=== PATIENT | male | born 1995 | race Caucasian/White ===

== ENCOUNTER 2017-04-07 12:32 | Emergency (ER) | payer BC ==
[2017-04-07 15:34] LABS: BASO # 0.1 10^3/uL (0.0-0.2); BASO % 0.7 % (0.0-1.0); EOS # 0.2 10^3/uL (0.0-0.50); EOS % 1.6 % (0.0-3.0); HEMATOCRIT 50.8 % (42.0-52.0); HEMOGLOBIN 18.1 g/dl (14.0-18.0); IMMATURE GRANULOCYTE % 0.4 % (0-0); LYMPH # 2.4 10^3/uL (1.5-6.5); LYMPH % 21.9 % (24.0-44.0); MEAN CORPUSCULAR HEMOGLOBIN 31.7 pg (27.0-33.0); MEAN CORPUSCULAR HGB CONC 35.6 g/dl (32.0-36.5); MONO # 0.7 10^3/uL (0.0-0.8); MONO % 6.1 % (0.0-5.0); NEUTROPHILS # 7.5 10^3/uL (1.8-7.7); NEUTROPHILS % 69.3 % (36.0-66.0); PLATELET COUNT, AUTOMATED 321 10^3/uL (150-450); RED BLOOD COUNT 5.71 10^6/uL (4.30-6.10); RED CELL DISTRIBUTION WIDTH 11.4 % (11.5-14.5); WHITE BLOOD COUNT 10.9 10^3/uL (4.0-10.0)
[2017-04-07 15:54] LABS: ANION GAP 6 MEQ/L (8-16); BLOOD UREA NITROGEN 12 MG/DL (7-18); CARBON DIOXIDE LEVEL 27 MEQ/L (21-32); CHLORIDE LEVEL 105 MEQ/L (98-107); CPK CREATINE PHOSPHOKINASE 215 U/L (39-308); CREATININE FOR GFR 0.87 MG/DL (0.70-1.30); GLOMERULAR FILTRATION RATE > 60.0 (>60); GLUCOSE, FASTING 90 MG/DL (70-100); SODIUM LEVEL 138 MEQ/L (136-145); TROPONIN I < 0.02 NG/ML (< 0.10)
[2017-04-07 15:59] LABS: MB/CK RELATIVE INDEX 0.46 (< OR =4)
== END 2017-04-07 16:31 | disposition home or self-care (01) ==
LOC: M ED 12:32
DX: R07.89 Other chest pain (principal); R06.02 Shortness of breath; R00.2 Palpitations; F33.9 Major depressive disorder, recurrent, unspecified; Z79.899 Other long term (current) drug therapy; F17.210 Nicotine dependence, cigarettes, uncomplicated
CPT/HCPCS: 71046

== ENCOUNTER → 2019-12-26 | Outpatient (CLI) | payer OTHER ==
[~2019-12-26] MED LIST: PARO20TA3
--- NOTE | 2019-12-31 10:55 | REP ---
LEFT ANKLE SERIES CLINICAL: Injury. TECHNIQUE: AP, lateral, and bilateral oblique views of the left ankle. FINDINGS: Osseous structures, joint spaces, and surrounding soft tissues are normal. No evidence for acute fracture or dislocation. IMPRESSION: Age appropriate left ankle radiographs. No acute fracture or dislocation. MTDD
--- NOTE | 2019-12-31 10:56 | REP ---
LEFT FOOT SERIES CLINICAL: Trauma, injury. TECHNIQUE: AP, lateral, and bilateral oblique views of the left foot. FINDINGS: Osseous structures, joint spaces, and surrounding soft tissues are normal. No acute fracture or dislocation. No subcutaneous emphysema or foreign body. IMPRESSION: Normal left foot radiographs. No acute fracture or dislocation. MTDD
== END ==
LOC: M WUC 12:38
PROVIDERS: ATTEND Physician Assistant
DX: S93.402A Sprain of unspecified ligament of left ankle, initial encounter (principal); S93.602A Unspecified sprain of left foot, initial encounter; X58.XXXA Exposure to other specified factors, initial encounter; Y92.89 Other specified places as the place of occurrence of the external cause

== ENCOUNTER → 2020-05-21 | Outpatient (REF) | payer OTHER | LOC: M WUC 10:37 | PROVIDERS: ATTEND Physician Assistant | DX: J02.9 Acute pharyngitis, unspecified (principal) ==

== ENCOUNTER 2020-06-23 21:21 | Emergency (ER) | payer OTHER ==
[~2020-06-23] VITALS: Ht 170.2 cm; Wt 112.3 kg
[2020-06-23 23:10] LABS: BASO # 0.1 10^3/uL (0.0-0.2); BASO % 0.6 % (0.0-1.0); EOS # 0.2 10^3/uL (0.0-0.5); EOS % 1.3 % (0.0-3.0); HEMATOCRIT 45.1 % (42.0-52.0); HEMOGLOBIN 15.4 g/dl (13.5-17.5); LYMPH # 3.2 10^3/uL (1.5-5.0); LYMPH % 22.7 % (24.0-44.0); MEAN CORPUSCULAR HEMOGLOBIN 31.2 pg (27.0-33.0); MEAN CORPUSCULAR HGB CONC 34.1 g/dl (32.0-36.5); MEAN CORPUSCULAR VOLUME 91.3 fl (80.0-96.0); MONO % 7.1 % (2.0-8.0); NEUTROPHILS # 9.4 10^3/uL (1.5-8.5); NEUTROPHILS % 67.5 % (36.0-66.0); PLATELET COUNT, AUTOMATED 333 10^3/uL (150-450); RED BLOOD COUNT 4.94 10^6/uL (4.30-6.10)
[2020-06-23 23:38] LABS: BLOOD UREA NITROGEN 14 MG/DL (7-18); CALCIUM LEVEL 8.5 MG/DL (8.5-10.1); CARBON DIOXIDE LEVEL 30 MEQ/L (21-32); CHLORIDE LEVEL 107 MEQ/L (98-107); CREATININE FOR GFR 0.98 MG/DL (0.70-1.30); GLOMERULAR FILTRATION RATE > 60.0 (>60); GLUCOSE, FASTING 106 MG/DL (70-100); SODIUM LEVEL 141 MEQ/L (136-145)
[2020-06-23] MEDS ORDERED: ISOVUE-370 76% 100ML VIAL As Ordered ONE (23:52)
--- NOTE | 2020-06-24 00:37 | REPVR ---
PROCEDURE INFORMATION: Exam: CT Neck With Contrast Exam date and time: 06/23/2020 11:40 PM Age: 25 years old Clinical indication: Enlarged lymph nodes; Localized; Additional info: Left lymphadenopthy TECHNIQUE: Imaging protocol: Computed tomography images of the neck with contrast. Radiation optimization: All CT scans at this facility use at least one of these dose optimization techniques: automated exposure control; mA and/or kV adjustment per patient size (includes targeted exams where dose is matched to clinical indication); or iterative reconstruction. Contrast material: ISO; Contrast volume: 75 ml; Contrast route: INTRAVENOUS (IV); COMPARISON: No relevant prior studies available. FINDINGS: Limitations: Patient motion. Paranasal sinuses: Mild paranasal sinus disease. Nasopharynx: Unremarkable. Oropharynx: Unremarkable. No significant tonsillar enlargement. Hypopharynx: Unremarkable. Larynx: Unremarkable. Normal epiglottis. Retropharyngeal space: Unremarkable. Submandibular/Parotid glands: Normal. Glands are normal in size. Thyroid: Normal. No enlarged or calcified nodules. Lymph nodes: There is bilateral cervical lymphadenopathy greatest at the IIA levels measuring up to 2.7 cm on the left. There are adjacent inflammatory changes bilaterally. No evidence of annabella necrosis. Trachea: Visualized trachea is unremarkable. Lungs: Unremarkable as visualized. Bones/joints: Unremarkable. No acute fracture. Soft tissues: Unremarkable. No significant soft tissue swelling. IMPRESSION: 1. Bilateral cervical lymphadenopathy measuring up to 2.7 cm on the left with adjacent inflammatory changes bilaterally compatible with lymphadenitis. 2. No drainable fluid collection or evidence of annabella necrosis. Electronically signed by: Arturo Killian On 06/24/2020 00:37:21 AM
--- NOTE | 2020-06-24 01:23 | REPVR ---
PROCEDURE INFORMATION: Exam: XR Chest Exam date and time: 06/24/2020 1:01 AM Age: 25 years old Clinical indication: Other: Lymphadenopathy TECHNIQUE: Imaging protocol: XR of the chest. Views: 2 views. COMPARISON: [facility] Chest, 2 view PA, Lat 04/07/2017 3:27 PM FINDINGS: Lungs: Unremarkable. No consolidation. Pleural spaces: Unremarkable. No pleural effusion. No pneumothorax. Heart/Mediastinum: Unremarkable. No cardiomegaly. Bones/joints: Unremarkable. IMPRESSION: No acute findings. Electronically signed by: Arturo Killian On 06/24/2020 01:23:49 AM
[2020-06-24] MEDS ORDERED: AUGMENTIN 875 MG TAB PO ONE (02:00)
[2020-06-24] MEDS ORDERED: AUGM875T28 PO (02:00)
[2020-06-24 02:10] VITALS: BP 129/74
--- NOTE | 2020-06-25 09:27 | ED PDOC ---
Post-Departure Follow-Up dr griggs faxed formal report of ct neck for fu Roldan Guzman MD Jun 25, 2020 09:27
== END 2020-06-24 02:15 | disposition home or self-care (01) ==
LOC: M ED 21:21
DX: L04.0 Acute lymphadenitis of face, head and neck (principal)
CPT/HCPCS: 70491; 71046; 80048; 85025; 99284; Q9967

== ENCOUNTER 2024-07-13 15:37 | Emergency (ER) | payer OTHER ==
[~2024-07-13] VITALS: Ht 170.2 cm; Wt 112.8 kg
[~2024-07-13 15:37] MED LIST changes: +AUGM875T28 PO
[2024-07-13 17:28] LABS: KETONE, URINE AUTO RFX TRACE mg/dL (NEGATIVE); LEUKOCYTE ESTERASE UR AUTO RFX NEGATIVE (NEGATIVE); MUCUS, URINE RFX SMALL (NEGATIVE); NITRITE, URINE AUTO RFX NEGATIVE (NEGATIVE); RBC, URINE AUTO RFX 0 /HPF (0-3); SQUAM EPITHELIAL CELL UR AURFX 0 /HPF (0-6); WBC, URINE AUTO RFX 0 /HPF (0-3)
[2024-07-13] MEDS ORDERED: IBUP-1114 PO (19:26)
[2024-07-13 19:35] VITALS: BP 141/97; TEMP 98; O2SAT 98
[2024-07-13] MEDS: IBUPROFEN 400MG TAB PO ONE (19:39)
[2024-07-13 19:42] LABS: Trichomonas vaginalis (AMP) NOT DETECTED (NEGATIVE)
[2024-07-13 20:05] LABS: GC DNA AMPLIFICATION NEGATIVE (NEGATIVE)
== END 2024-07-13 19:42 | disposition home or self-care (01) ==
LOC: M ED 15:37
DX: N50.812 Left testicular pain (principal); I86.1 Scrotal varices; F17.200 Nicotine dependence, unspecified, uncomplicated